=== PATIENT | female | born 1980 | race Caucasian/White ===

== ENCOUNTER 2024-05-25 17:13 | Inpatient (IN) | payer SELFPAY ==
[~2024-05-25] VITALS: Ht 165.1 cm; Wt 107.7 kg
[2024-05-25 17:17] VITALS: O2SAT 98
[2024-05-25] MEDS: SODIUM CHLORIDE 0.9% 1,000 ML IV ONE (18:45)
[2024-05-25 18:55] LABS: BASOPHILS % 0.3 % (0.0-2.0); EOSINOPHILS % 0.1 % (0.0-5.0); HEMOGLOBIN. 12.7 g/dL (12.0-16.0); LYMPHOCYTES % 7.9 % (20.0-50.0); MEAN CORPUSCULAR HEMOGLOBIN 27.2 pg (28.0-32.0); MEAN CORPUSCULAR HGB CONC 33.5 g/dL (31.0-37.0); MEAN CORPUSCULAR VOLUME 81.3 fL (81.0-99.0); MEAN PLATELET VOLUME 6.8 fl (7.4-10.4); MONOCYTES % 4.2 % (2.0-8.0); NEUTROPHILS % 87.5 % (40.0-76.0); PLATELET 380 x1000/uL (130-400); RED BLOOD CELL COUNT 4.68 mill/uL (4.2-5.4); RED CELL DISTRIBUTION WIDTH 16.4 % (11.6-14.6); WHITE BLOOD COUNT 18.8 x1000/uL (4.5-11.0)
[2024-05-25 19:02] LABS: CHLORIDE 100 mEq/L (98-107); POTASSIUM 2.9 mEq/L (3.5-5.1); SODIUM 138 mEq/L (136-145)
[2024-05-25 19:03] LABS: CALCIUM 8.4 mg/dL (8.7-10.4); CARBON DIOXIDE 22 mEq/L (21-32)
[2024-05-25 19:08] LABS: CREATININE 0.9 mg/dL (0.6-1.0); GLUCOSE 150 mg/dL (70-105)
[2024-05-25 19:09] LABS: ETHANOL BLOOD 19 mg/dL (<10); UREA NITROGEN BLOOD 15 mg/dL (9-23)
[2024-05-25 19:10] LABS: ALANINE AMINOTRANSFERASE 19 IU/L (10-49); ALBUMIN 4.9 g/dL (3.2-4.8); ASPARTATE AMINOTRANSFERASE 32 IU/L (<34); BILIRUBIN DIRECT 0.3 mg/dL (<=3.0); PROTEIN TOTAL 7.6 g/dL (6.0-8.3)
[2024-05-25 19:11] LABS: BILIRUBIN TOTAL 0.7 mg/dL (0.1-1.0)
[2024-05-25 19:23] LABS: HCG SCREEN NEGATIVE
[2024-05-25] MEDS: ONDANSETRON HCL 4MG/2ML INJ IV STA (20:13)
[2024-05-25] MEDS: LORAZEPAM 2MG/ML INJ IV ONE (20:13)
[2024-05-25] MEDS: FOLIC ACID 1 MG, THIAMINE HCL 100 MG, MVI, ADULT NO.1 10 ML in DEXTROSE 5% WATER 1,000 ML IV ONE (20:14)
[2024-05-25] MEDS: MAGNESIUM 1 G PREMIX 100 ML IV ONE (20:43)
[2024-05-25] MEDS: POTASSIUM CHLORIDE 20MEQ/PACKET PO ONE (20:44)
[2024-05-26] MEDS: CHLORDIAZEPOXIDE 25MG CAPSULE PO SCH ×2 (01:19→21:04)
[2024-05-26] MEDS: ACETAMINOPHEN 325MG TABLET PO PRN ×2 (01:20→08:45)
[2024-05-26] MEDS: LORAZEPAM 2MG/ML INJ IV PRN (01:21)
[2024-05-26] MEDS: DIPHENHYDRAMINE 50MG/ML VIAL IV PRN ×2 (01:25→20:26)
[2024-05-26] MEDS: ONDANSETRON HCL 4MG/2ML INJ IV PRN (01:25)
[2024-05-26] MEDS: POTASSIUM CHLORIDE 20MEQ TABLET SR PO NR (01:36)
[2024-05-26] MEDS: MAGNESIUM 2 G PREMIX 50 ML IV NR (02:39)
[2024-05-26] MEDS: MVI, ADULT NO.1 10 ML, FOLIC ACID 1 MG, THIAMINE HCL 100 MG in SODIUM CHLORIDE 0.9% 1,0... IV NR (03:42)
[2024-05-26 09:00] VITALS: BP 116/73; PULSE 95; RESP 20; TEMP 37.1964
[2024-05-26 09:10] VITALS: BP 116/73; PULSE 95; RESP 20; TEMP 36.78072; O2SAT 98
[2024-05-26 12:41] VITALS: BP 100/56; PULSE 85; RESP 18; TEMP 36.05844; O2SAT 98
[2024-05-26] MEDS: DIPHENHYDRAMINE 50MG/ML VIAL IV NR (15:01)
[2024-05-26] MEDS ORDERED: FLUO20TA29 PO (15:22)
[2024-05-26] MEDS ORDERED: FURO20TA4 PO (15:22)
[2024-05-26] MEDS ORDERED: LISI-186 PO (15:22)
[2024-05-26] MEDS ORDERED: PRAM2.254 MT (15:22)
[2024-05-26] MEDS ORDERED: QUET100T PO (15:22)
[2024-05-26] MEDS ORDERED: HYDR50TA55 PO (15:22)
[2024-05-26 16:00] VITALS: BP 113/72; PULSE 96; RESP 20; TEMP 37.16964; O2SAT 98
[2024-05-26] MEDS: LORAZEPAM 2MG/ML INJ IV NR (16:15)
[2024-05-26 20:00] VITALS: BP 108/69; PULSE 91; RESP 18; TEMP 36.50292; O2SAT 95
[2024-05-27] VITALS: BP 144/96; PULSE 95; RESP 20; TEMP 37.00296; O2SAT 98
[2024-05-27 04:00] VITALS: BP 115/76; PULSE 90; RESP 18; TEMP 36.61404; O2SAT 98
[2024-05-27 05:35] LABS: CARBON DIOXIDE 26 mEq/L (21-32); CHLORIDE 105 mEq/L (98-107); POTASSIUM 3.8 mEq/L (3.5-5.1); SODIUM 139 mEq/L (136-145)
[2024-05-27 05:36] LABS: CALCIUM 8.3 mg/dL (8.7-10.4)
[2024-05-27 05:40] LABS: CREATININE 0.9 mg/dL (0.6-1.0)
[2024-05-27 05:41] LABS: GLUCOSE 101 mg/dL (70-105); UREA NITROGEN BLOOD 8 mg/dL (9-23)
[2024-05-27 05:43] LABS: PHOSPHORUS 1.9 mg/dL (2.5-4.9)
[2024-05-27 05:45] LABS: BASOPHILS % 0.4 % (0.0-2.0); EOSINOPHILS % 1.9 % (0.0-5.0); HEMATOCRIT. 33.6 % (36.0-48.0); HEMOGLOBIN. 10.7 g/dL (12.0-16.0); MEAN CORPUSCULAR HGB CONC 31.8 g/dL (31.0-37.0); MEAN CORPUSCULAR VOLUME 84.7 fL (81.0-99.0); MEAN PLATELET VOLUME 7.3 fl (7.4-10.4); MONOCYTES % 11.6 % (2.0-8.0); NEUTROPHILS % 56.1 % (40.0-76.0); PLATELET 213 x1000/uL (130-400); RED BLOOD CELL COUNT 3.97 mill/uL (4.2-5.4); RED CELL DISTRIBUTION WIDTH 16.2 % (11.6-14.6); WHITE BLOOD COUNT 6.4 x1000/uL (4.5-11.0)
[2024-05-27] MEDS ORDERED: POTASSIUM PHOSPHATE 20 MMOL in DEXT 5% WATER 243.3333 ML IV NR (10:30)
== END 2024-05-27 13:00 | disposition left against medical advice (07) | DRG 425 ==
LOC: ER 17:13 → 5WST 20:19 → 7WST 05-26 09:18
PROVIDERS: ADMIT Internal Medicine; ATTEND Internal Medicine
DX: E87.6 Hypokalemia (principal); F10.231 Alcohol dependence with withdrawal delirium; R65.10 Systemic inflammatory response syndrome (SIRS) of non-infectious origin without acute organ dysfunction; E83.42 Hypomagnesemia; D72.829 Elevated white blood cell count, unspecified; F41.1 Generalized anxiety disorder; Z53.29 Procedure and treatment not carried out because of patient's decision for other reasons; Y90.9 Presence of alcohol in blood, level not specified
CPT/HCPCS: 36415; 71045; 80048; 80076; 80320; 82962; 83735; 84100; 84703; 85025; 93005; 99285; C1893; J1200; J2060; J2405; J3411; J3475; J3490; J7030; J7060; J7070; G0480